=== PATIENT | female | born 2000 | race Native Hawaiian/Other Pacific Islander ===

== ENCOUNTER 2022-01-16 14:40 | Emergency (ER) | payer OTHER ==
[~2022-01-16] VITALS: Ht 157.5 cm; Wt 49.9 kg
[2022-01-16 14:46] VITALS: BP 114/72; TEMP 98.2
== END 2022-01-16 15:43 | disposition home or self-care (01) ==
LOC: ED 14:40
DX: Z33.1 Pregnant state, incidental (principal); K02.9 Dental caries, unspecified; K08.89 Other specified disorders of teeth and supporting structures
CPT/HCPCS: 81025; 99283